=== PATIENT | male | born 1945 | race Caucasian/White ===

== ENCOUNTER 2021-02-07 13:46 | Emergency (ER) | payer OTHER ==
[~2021-02-07] VITALS: Ht 182.9 cm; Wt 81.7 kg
[2021-02-07] MEDS ORDERED: NITROSTAT0.4 M1 SUBLING (13:51)
[2021-02-07] MEDS ORDERED: NORVASC 2.5 MG2.5 M1 (13:53)
[2021-02-07 14:05] LABS: ABSOLUTE BASOPHILS 0.1 thou/uL (0.0-0.2); ABSOLUTE EOSINOPHILS 0.4 thou/uL (0.0-0.7); ABSOLUTE LYMPHOCYTES 1.8 thou/uL (0.8-5.3); ABSOLUTE MONOCYTES 0.6 thou/uL (0.0-1.2); ABSOLUTE NEUTROPHILS 3.6 thou/uL (1.6-8.1); BASOPHILS 0.9 %; HEMATOCRIT 45.8 % (42.0-52.0); HEMOGLOBIN 15.6 gm/dL (14.0-18.0); MCH 28.7 pg (26.0-34.0); MCV 84.4 fL (80.0-100.0); MONOCYTES 9.8 %; NUCLEATED RBCS 0 /100WBC; PLATELET COUNT* 232 thou/uL (150-400); POLYS 55.3 %; RBC 5.43 mil/uL (4.50-6.00); RDW-CV 13.3 % (10.5-14.5); WBC 6.5 thou/uL (4.0-11.0)
[2021-02-07 14:14] LABS: CALCIUM 9.6 mg/dL (8.5-10.1); CREATININE 1.4 mg/dL (0.6-1.3); POTASSIUM 4.3 mmol/L (3.5-5.1)
[2021-02-07 14:16] LABS: APTT 23.7 Seconds (25.0-31.3); INR 0.9; PROTIME 10.1 Seconds (9.20-11.50)
[2021-02-07 14:28] LABS: ALBUMIN 3.8 g/dL (3.4-5.0); CK-MB MASS 0.7 ng/mL (<0.5-3.6); MAGNESIUM 2.3 mg/dL (1.8-2.4); TOTAL BILIRUBIN 0.5 mg/dL (<0.1-1.0); TOTAL PROTEIN 7.8 g/dL (6.4-8.2)
[2021-02-07 16:32] VITALS: BP 101/58
[2021-02-07] MEDS ORDERED: NITROGLYCERIN0.4 MG SUBLING (16:40)
--- NOTE | 2021-02-07 17:56 | EKG ---
[place] [address] ELECTROCARDIOGRAM REPORT Name: GERALD CONNORS Room: [facility]#: [id number] Admission: 02/07/21 Attend Phys: Discharge: 02/07/21 Date of : 49 Date of Service: 02/07/21 1350 Report #: [id number] THIS REPORT FOR: //name// [facility] ED Test Date: 2021-02-07 Test Time: 13:50:48 Pat Name: GERALD OCNNORS Department: Room: Gender: A&P Mechanic: [facility] : 1945 Requested By: Jaime Perez Order Number: [id number] MD: Av Srinivasan Measurements Intervals [place] Rate: 67 P: -2 NC: 224 QRS: -50 QRSD: 117 T: 68 QT: 407 QTc: 430 Interpretive Statements Sinus rhythm Prolonged NC interval Left anterior fascicular block No previous ECG available for comparison Electronically Signed On 02-07-2021 17:56:12 [facility] [employer] AIDE by Av Srinivasan [email or web address] <ELECTRONICALLY SIGNED> By: Av Srinivasan MD, [facility] 02/07/21 1756 135 49 Av Srinivasan MD, FAC /EPI
== END 2021-02-07 16:32 | disposition home or self-care (01) ==
LOC: M.ERS 13:46
PROVIDERS: Family Medicine
DX: R07.89 Other chest pain (principal); I10 Essential (primary) hypertension; Z88.5 Allergy status to narcotic agent; Z90.49 Acquired absence of other specified parts of digestive tract